=== PATIENT | male | born 1975 | race Caucasian/White ===

== ENCOUNTER 2017-10-15 12:58 | Emergency (ER) | payer OTHER ==
[2017-10-15 14:15] LABS: Appearance,Urine Clear (Clear); Bilirubin,Urine Negative (Negative); Blood,Urine Negative (Negative); Color,Urine Yellow; Glucose,Urine (UA) Negative (Negative); Ketones,Urine Negative (Negative); Leukocyte Esterase,Urine Trace (Negative); Mucus,Urine Rare /hpf; Nitrite,Urine Negative (Negative); PH, Urine 6.5 (5.0-8.0); Protein,Urine Negative (Negative); RBC,Urine 1 /hpf (0-5); Specific Gravity,Urine 1.014 (1.001-1.035); Urobilinogen,Urine <2.0 mg/dL (<2.0); WBC,Urine 4 /hpf (0-5)
[2017-10-15 14:26] LABS: ALT 35 U/L (21-72); AST 20 U/L (17-59); Albumin 4.3 g/dL (3.5-5.0); Alkaline Phosphatase 79 U/L (38-126); Amylase 50 U/L (30-110); Anion Gap 13 mmol/L; Blood Urea Nitrogen 12 mg/dL (9-20); Calcium 9.4 mg/dL (8.4-10.2); Carbon Dioxide 25 mmol/L (22-30); Chloride 103 mmol/L (98-107); Glucose 88 mg/dL (74-99); Lipase 45 U/L (23-300); Potassium 4.3 mmol/L (3.5-5.1); Sodium 141 mmol/L (137-145); Total Bilirubin 0.4 mg/dL (0.2-1.3); Total Protein 6.9 g/dL (6.3-8.2)
[2017-10-15 14:35] LABS: HCT 47.3 % (39.0-53.0); HGB 16.4 gm/dL (13.0-17.5); MCH 29.8 pg (25.0-35.0); MCHC 34.7 g/dL (31.0-37.0); MCV 85.9 fL (80.0-100.0); Mean Platelet Volume 6.5; Platelet Count 231 k/uL (150-450); RBC 5.51 m/uL (4.30-5.90); WBC 5.4 k/uL (3.8-10.6)
[2017-10-15] MEDS ORDERED: SODIUM CHLORIDE 0.9% 1,000 ML IV ONE (14:35)
[2017-10-15] MEDS ORDERED: KETOROLAC 30 MG/ML 1 ML VIAL IVP STA (14:35)
[2017-10-15] MEDS ORDERED: RX INFO: IV CONTRAST WAS GIVEN 1 EACH MISC MISCELLANE PRN (14:35)
--- NOTE | 2017-10-15 14:48 | ED ---
Nausea/Vomiting/Diarrhea HPI - General Chief complaint: Nausea/Vomiting/Diarrhea Stated complaint: nausea,vomiting Time Seen by Provider: 10/15/17 14:11 Source: patient Mode of arrival: ambulatory Limitations: no limitations - History of Present Illness Initial comments: 42-year-old male with past medical history as noted below presented for evaluation of abdominal pain with nausea and vomiting since Thursday. He states the pain initially started in the left lower quadrant and was followed 6 hours later by pain. His entire abdomen with associated nausea and vomiting and diarrhea. He states that his pain comes and goes, is mildly alleviated after vomiting, and worsened with palpation and walking. He states that this is never happened before. He has tried Imodium for the diarrhea which has improved somewhat and Tylenol for the pain which was not effective. He has not seen his primary care physician concerning this. Only past abdominal history is an appendectomy. Denies any upper abdominal pain or worsening with food. He denies significant alcohol consumption however he states he does take NSAIDs on a consistent basis. Denies chest pain, shortness of breath, fevers, chills. - Related Data Home Medications Medication Instructions Recorded Confirmed Acetaminophen Tab [Tylenol Tab] 1,000 mg PO Q6HR PRN 10/15/17 10/15/17 Ibuprofen [Motrin Ib] 400 mg PO Q6H PRN 10/15/17 10/15/17 Loperamide [Imodium] 2 - 4 mg PO QID PRN 10/15/17 10/15/17 Previous Rx's Medication Instructions Recorded Dicyclomine [Bentyl] 20 mg PO QID #30 tablet 10/15/17 Ondansetron Odt [Zofran Odt] 4 mg PO Q8HR PRN #7 tab 10/15/17 Allergies Allergy/AdvReac Type Severity Reaction Status Date / Time Penicillins Allergy Rash/Hives Verified 10/15/17 14:35 Review of Systems ROS Statement: Those systems with pertinent positive or pertinent negative responses have been documented in the HPI. ROS Other: All systems not noted in ROS Statement are negative. Constitutional: Denies: fever, chills, weakness Eyes: Denies: eye discharge, vision change ENT: Denies: ear pain, throat pain Respiratory: Denies: cough, dyspnea, wheezes Cardiovascular: Denies: chest pain, palpitations Endocrine: Reports: fatigue (Generalized). Denies: polydipsia, polyuria Gastrointestinal: Reports: abdominal pain, nausea, vomiting, diarrhea. Denies: hematemesis, melena, hematochezia Genitourinary: Denies: urgency, dysuria Musculoskeletal: Denies: back pain, arthralgia, myalgia Skin: Denies: rash, lesions Neurological: Denies: headache, weakness Psychiatric: Denies: anxiety, depression Hematological/Lymphatic: Denies: easy bleeding, easy bruising Past Medical History Past Medical History: Hyperlipidemia, Hypertension Additional Past Medical History / Comment(s): back pain, possible hypertension, anxiety disorder. History of Any Multi-Drug Resistant Organisms: None Reported Past Surgical History: Back Surgery Additional Past Surgical History / Comment(s): Pain back injections, back surgery in march 2014 Past Anesthesia/Blood Transfusion Reactions: No Reported Reaction Past Psychological History: Anxiety, Depression Smoking Status: Former smoker Past Alcohol Use History: Occasional Past Drug Use History: IV Drug Use, Opiates - Past Family History Father History Unknown: Yes Mother Family Medical History: Diabetes Mellitus General Exam Limitations: no limitations General appearance: alert, in distress ([id number]) Head exam: Present: atraumatic, normocephalic Eye exam: Present: normal appearance, PERRL, EOMI. Absent: scleral icterus, conjunctival injection ENT exam: Present: mucous membranes dry, normal external ear exam Neck exam: Present: normal inspection. Absent: tenderness Respiratory exam: Present: normal lung sounds bilaterally, respiratory distress Cardiovascular Exam: Present: regular rate, normal rhythm GI/Abdominal exam: Present: soft, tenderness (Left lower quadrant). Absent: distended, guarding, rebound, rigid, hernia Rectal exam: Present: deferred Extremities exam: Present: normal inspection, full ROM Back exam: Present: normal inspection, full ROM Neurological exam: Present: alert, oriented X3 Psychiatric exam: Present: normal affect, normal mood Skin exam: Present: warm, dry, intact Course Vital Signs 10/15/17 10/15/17 10/15/17 13:39 16:09 17:02 Temperature 99.5 F 99.8 F H 99.2 F Pulse Rate 79 75 76 Respiratory 18 20 18 Rate Blood Pressure 132/76 140/66 130/80 O2 Sat by Pulse 97 98 98 Oximetry Medical Decision Making - Medical Decision Making 42-year-old male presenting for evaluation of abdominal pain with associated nausea vomiting diarrhea since Thursday. On physical exam he appears to be in [id number] distress sitting at the edge of the bed stating he is feeling nauseated. Abdomen is soft and only tender to the left lower quadrant without peritoneal signs of guarding, rigidity, rebound. Pedis membranes are dry however pink without other abnormality. Remainder of his physical exam is benign. The patient starting the left lower quadrant concern for diverticulitis versus diverticulosis among other etiologies is concerning and will obtain CT abdomen and pelvis with IV contrast. We'll also obtain labs and provide IV fluids and Zofran. Labs revealed no significant abnormalities and CT abdomen and pelvis showed no acute process. The patient was reevaluated and had improvement in his symptoms. He is informed of all results and through shared decision making it was determined that he be discharged with instructions to follow-up with his primary care physician but to return to this facility if symptoms should worsen or persist. The patient acknowledged an understanding of all information provided and agreed with this plan of care. - Lab Data Result diagrams: 10/15/17 14:06 10/15/17 14:06 Lab Results 10/15/17 10/15/17 10/15/17 Range/Units 14:06 14:06 14:06 WBC 5.4 (3.8-10.6) k/uL RBC 5.51 (4.30-5.90) m/uL Hgb 16.4 (13.0-17.5) gm/dL Hct 47.3 (39.0-53.0) % MCV 85.9 (80.0-100.0) fL MCH 29.8 (25.0-35.0) pg MCHC 34.7 (31.0-37.0) g/dL RDW 13.0 (11.5-15.5) % Plt Count 231 (150-450) k/uL Neutrophils % (Manual) 60 % Lymphocytes % (Manual) 35 % Monocytes % (Manual) 5 % Neutrophils # (Manual) 3.24 (1.3-7.7) k/uL Lymphocytes # (Manual) 1.89 (1.0-4.8) k/uL Monocytes # (Manual) 0.27 (0-1.0) k/uL Nucleated RBCs 0 (0-0) /100 WBC RBC Morphology Normal Sodium 141 (137-145) mmol/L Potassium 4.3 (3.5-5.1) mmol/L Chloride 103 (98-107) mmol/L Carbon Dioxide 25 (22-30) mmol/L Anion Gap 13 mmol/L BUN 12 (9-20) mg/dL Creatinine 0.76 (0.66-1.25) mg/dL Est GFR (CKD-EPI)AfAm >90 (>60 ml/min/1.73 sqM) Est GFR (CKD-EPI)NonAf >90 (>60 ml/min/1.73 sqM) Glucose 88 (74-99) mg/dL Calcium 9.4 (8.4-10.2) mg/dL Total Bilirubin 0.4 (0.2-1.3) mg/dL AST 20 (17-59) U/L ALT 35 (21-72) U/L Alkaline Phosphatase 79 (38-126) U/L Total Protein 6.9 (6.3-8.2) g/dL Albumin 4.3 (3.5-5.0) g/dL Amylase 50 (30-110) U/L Lipase 45 (23-300) U/L Urine Color Yellow Urine Appearance Clear (Clear) Urine pH 6.5 (5.0-8.0) Ur Specific [place] 1.014 (1.001-1.035) Urine Protein Negative (Negative) Urine Glucose (UA) Negative (Negative) Urine Ketones Negative (Negative) Urine Blood Negative (Negative) Urine Nitrite Negative (Negative) Urine Bilirubin Negative (Negative) Urine Urobilinogen <2.0 (<2.0) mg/dL Ur Leukocyte Esterase Trace H (Negative) Urine RBC 1 (0-5) /hpf Urine WBC 4 (0-5) /hpf Urine Mucus Rare H (None) /hpf Disposition Clinical Impression: Abdominal pain, Nausea and vomiting Disposition: HOME SELF-CARE Condition: Stable Instructions: Acute Nausea and Vomiting (ED), Acute Diarrhea (ED), Abdominal Pain (ED) Additional Instructions: Please use medication as discussed. Please follow up with family doctor if symptoms have not improved over the next two days. Please return to the emergency room if your symptoms increase or worsen or for any other concerns. Prescriptions: Dicyclomine [Bentyl] 20 mg PO QID #30 tablet Ondansetron Odt [Zofran Odt] 4 mg PO Q8HR PRN #7 tab PRN Reason: Nausea Referrals: Christy Wynn MD [Primary Care Provider] - 1-2 days Time of Disposition: 16:35
[2017-10-15 14:58] LABS: Lymphocytes # (M) 1.89 k/uL (1.0-4.8); Monocytes # (M) 0.27 k/uL (0-1.0); Neutrophils # (M) 3.24 k/uL (1.3-7.7); Neutrophils % (M) 60 %; Nucleated Red Blood Cells 0 /100 WBC (0-0); Total Cells Counted 100
--- NOTE | 2017-10-15 15:36 | CT ---
EXAMINATION TYPE: CT abdomen pelvis w con DATE OF EXAM: 10/15/2017 COMPARISON: 03/24/2015 HISTORY: 42-year-old male with nausea and vomiting x 3 days with left lower quadrant pain. TECHNIQUE: Contiguous axial scanning of the abdomen and pelvis following administration of 100 ml Omn ipaque 300 IV contrast. Delayed images through the kidneys and coronal/sagittal reconstructions perf ormed. CT DLP: 1451 mGycm Automated exposure control for dose reduction was used. FINDINGS: Heart is normal size without pericardial effusion. Lung bases clear without pleural effusion. Tiny hiatal hernia. Small amount of focal fat along the anterior falciform ligament. Otherwise, no focal liver lesion. Po rtal venous system is patent. No biliary ductal dilatation. Gallbladder is mildly hydropic measuring 4.2 cm wide but without surrounding inflammatory change. Adrenal glands, kidneys, and pancreas appear within normal limits. Apparently 4 vague hyperdense foci are noted within the spleen. The spleen is also mildly enlarged me asuring 15.2 cm on coronal series. Previously measured 15.9 cm. Incidental retroaortic left renal vein. No dilated small bowel, free fluid, or free air. No mesenteric or retroperitoneal lymphadenopathy. Co uple scattered prominent mesenteric lymph nodes measuring up to 7 mm are noted in the mid abdomen. The appendix is not identified. No secondary findings of acute appendicitis in the right lower quadra nt. Mild stool burden. Bladder nondistended. Pelvic phleboliths are noted. No abnormal fluid collection in the pelvis or pel jason lymphadenopathy seen. Bones: Mild degenerative changes of the hips and within the lower lumbar spine. No osseous destructiv e process. IMPRESSION: 1. Mildly hydropic gallbladder probably relating to fasting state. If right upper quadrant pain or co ncern for early acute cholecystitis, recommend ultrasound or HIDA scan. 2. Mild splenomegaly (15.2 cm). There are 4 vague hypodense lesions within. The etiology is unclear. If immunocompromised state, fungal infection is a possibility. Metastatic disease is unlikely given l ack of other findings in the remainder of the abdomen/pelvis. Possibility of lymphoid neoplasm diffic ult to exclude at this time. Clinical correlation recommended. Three-month follow-up exam can be perf ormed. 3. Tiny hiatal hernia.
[2017-10-15 17:03] VITALS: BP 130/80; PULSE 76; RESP 18; TEMP 99.2
== END 2017-10-15 17:02 | disposition home or self-care (01) ==
LOC: EC 12:58
DX: R10.32 Left lower quadrant pain (principal); R11.2 Nausea with vomiting, unspecified; Z87.891 Personal history of nicotine dependence; Z88.0 Allergy status to penicillin; Z90.49 Acquired absence of other specified parts of digestive tract
CPT/HCPCS: 36415; 80053; 82150; 83690; 85025; 81001; 74177; 99284; 96374; 96361; J1885; Q9967

== ENCOUNTER → 2020-01-20 | Outpatient (CLI) | payer OTHER | END | disposition home or self-care (01) | LOC: LABWHC1 12:51 | PROVIDERS: ATTEND Family Medicine | DX: Z03.818 Encounter for observation for suspected exposure to other biological agents ruled out (principal); I25.10 Atherosclerotic heart disease of native coronary artery without angina pectoris; Z11.59 Encounter for screening for other viral diseases | CPT/HCPCS: U0003; C9803 ==

== ENCOUNTER 2022-10-30 16:09 | Observation (INO) | payer BC, OTHER ==
--- NOTE | 2022-10-30 16:23 | ED ---
Medical Clearance HPI - General Chief complaint: Drug Screen Stated complaint: poss overdose Time Seen by Provider: 10/30/22 16:19 Source: EMS, RN notes reviewed, old records reviewed Mode of arrival: EMS Limitations: language barrier, altered mental status, physical limitation - History of Present Illness Initial comments: This is a 47-year-old male to the emergency department for evaluation patient presents today for altered mental status found and not acting appropriately. Patient is known to be on Suboxone. Patient is unable to give history history obtained from EMS and prior charting. Concern for drug overdose or intoxication MD Complaint: other (Patient presents for altered mental status) -: unknown Reason for Medical Clearance: intoxication, medical condition, psychiatric condition Place: home Alleged Intoxication: Yes Compliant with Home Medications: No Associated Symptoms: confusion, nausea/vomiting, weakness Treatments Prior to Arrival: none Home medications: Home Medications Medication Instructions Recorded Confirmed ALPRAZolam [Xanax] 1 - 2 mg PO DAILY PRN 10/30/22 10/30/22 Buprenorphine HCl/Naloxone HCl 1 film SL TID 10/30/22 10/30/22 [Suboxone 8 mg-2 mg Sl Film] Escitalopram [Lexapro] 30 mg PO DAILY 10/30/22 10/30/22 hydrOXYzine HCL [Atarax] 50 mg PO BID PRN 10/30/22 10/30/22 traZODone HCL [Desyrel] 25 - 100 mg PO HS PRN 10/30/22 10/30/22 Allergies/Adverse reactions: Allergies Allergy/AdvReac Type Severity Reaction Status Date / Time Penicillins Allergy Rash/Hives Verified 10/30/22 17:50 Review of Systems ROS Statement: Those systems with pertinent positive or pertinent negative responses have been documented in the HPI. ROS Other: All systems not noted in ROS Statement are negative. Past Medical History Past Medical History: Hyperlipidemia, Hypertension Additional Past Medical History / Comment(s): back pain, possible hypertension, anxiety disorder. History of Any Multi-Drug Resistant Organisms: None Reported Past Surgical History: Back Surgery Additional Past Surgical History / Comment(s): Pain back injections, back surgery in march 2014 Past Anesthesia/Blood Transfusion Reactions: No Reported Reaction Past Psychological History: Anxiety, Depression Past Alcohol Use History: Occasional Past Drug Use History: IV Drug Use, Opiates - Past Family History Father History Unknown: Yes Mother Family Medical History: Diabetes Mellitus General Exam Limitations: altered mental status General appearance: alert, in no apparent distress Head exam: Present: atraumatic, normocephalic, normal inspection Eye exam: Present: normal appearance, PERRL, EOMI. Absent: scleral icterus, conjunctival injection, periorbital swelling ENT exam: Present: normal exam, mucous membranes moist Neck exam: Present: normal inspection. Absent: tenderness, meningismus, lymp hadenopathy Respiratory exam: Present: normal lung sounds bilaterally. Absent: respiratory distress, wheezes, rales, rhonchi, stridor Cardiovascular Exam: Present: regular rate, normal rhythm, normal heart sounds. Absent: systolic murmur, diastolic murmur, rubs, gallop, clicks GI/Abdominal exam: Present: soft, normal bowel sounds. Absent: distended, tenderness, guarding, rebound, rigid Extremities exam: Present: normal inspection, full ROM, normal capillary refill. Absent: tenderness, pedal edema, joint swelling, calf tenderness Back exam: Present: normal inspection Neurological exam: Present: alert, oriented X3, CN II-XII intact Psychiatric exam: Present: normal affect, normal mood Skin exam: Present: warm, dry, intact, normal color. Absent: rash Course Vital Signs 10/30/22 10/30/22 16:17 20:18 Temperature 98.6 F Pulse Rate 89 Respiratory 18 16 Rate O2 Sat by Pulse 98 Oximetry - Reevaluation(s) Reevaluation #1: 10/30/22 22:51 Medical record is reviewed Reevaluation #2: 10/30/22 22:51 Patient has no change in symptoms here in the ER Reevaluation #3: 10/30/22 22:52 Patient informed results and questions answered Reevaluation #4: 10/30/22 22:52 Was pt. sent in by a medical professional or institution? @ -no Did you speak to anyone other than the patient for history? @ -no Did you review nursing and triage notes? @ -agree Were old charts reviewed? @ -no Differential Diagnosis? @ -ams EKG interpreted by me (3pts min.)? @ -yes X-rays interpreted by me (1pt min.)? @ -no CT interpreted by me (1pt min.)? @ -no U/S interpreted by me (1pt. min.)? @ -no What testing was considered but not performed? (CT, X-rays, U/S, labs)? Why? @ -no What meds were considered but not given? Why? @ -narcan Did you discuss the management of the patient with other professionals? @ -no Did you reconcile home meds? @ -no Was smoking cessation discussed for >3mins.? @ -no Was critical care preformed (if so, how long)? @ -no Were there social determinants of health that impacted care today? How? (Homelessness, low income, unemployed, alcoholism, drug addiction, transportation, low edu. Level, literacy, decrease access to med. care, detention, rehab)? @ -no Was there de-escalation of care discussed even if they declined? (Discuss DNR or withdrawal of care, Hospice)? @ -no What co-morbidities impacted this encounter? (DM, HTN, Smoking, COPD, CAD, Cancer, CVA, Hep., AIDS, mental health diagnosis, sleep apnea, morbid obesity)? @ -no Was patient admitted / discharged? @ -admit Undiagnosed new problem with uncertain prognosis? @ -no Drug Therapy requiring intensive monitoring for toxicity (Heparin, Nitro, Insulin, Cardizem)? @ -no Were any procedures done? @ -no Diagnosis/symptom? @ -ams,overdose Acute, or Chronic, or Acute on Chronic? @ -acute Uncomplicated (without systemic symptoms) or Complicated (systemic symptoms)? @ -uncomplicated Side effects of treatment? @ -no Exacerbation, Progression, or Severe Exacerbation] @ -no Poses a threat to life or bodily function? @ -no Medical Decision Making - Medical Decision Making 47 male DF for evaluation patient Dese for altered mental status possible accidental drug overdose. Patient is on Suboxone could be overdose on his own Suboxone. Patient was petition for psychiatric evaluation - Lab Data Result diagrams: 10/30/22 18:07 10/30/22 18:07 Lab Results 10/30/22 10/30/22 10/30/22 Range/Units 18:07 18:07 18:07 WBC 7.0 (3.8-10.6) k/uL RBC 5.03 (4.30-5.90) m/uL Hgb 14.7 (13.0-17.5) gm/dL Hct 43.1 (39.0-53.0) % MCV 85.7 (80.0-100.0) fL MCH 29.2 (25.0-35.0) pg MCHC 34.1 (31.0-37.0) g/dL RDW 13.6 (11.5-15.5) % Plt Count 188 (150-450) k/uL MPV 7.6 Neutrophils % Not Reportable Neutrophils % (Manual) 68 % Lymphocytes % Not Reportable Lymphocytes % (Manual) 27 % Monocytes % Not Reportable Monocytes % (Manual) 5 % Eosinophils % Not Reportable Basophils % Not Reportable Neutrophils # Not Reportable Neutrophils # (Manual) 4.76 (1.3-7.7) k/uL Lymphocytes # Not Reportable Lymphocytes # (Manual) 1.89 (1.0-4.8) k/uL Monocytes # Not Reportable Monocytes # (Manual) 0.35 (0-1.0) k/uL Eosinophils # Not Reportable Basophils # Not Reportable Nucleated RBCs 0 (0-0) /100 WBC Manual Slide Review Performed RBC Morphology Normal PT 10.6 (9.0-12.0) sec INR 1.0 (<1.2) APTT 27.5 (22.0-30.0) sec Sodium 141 (137-145) mmol/L Potassium 4.3 (3.5-5.1) mmol/L Chloride 107 (98-107) mmol/L Carbon Dioxide 27 (22-30) mmol/L Anion Gap 7 mmol/L BUN 12 (9-20) mg/dL Creatinine 0.54 L (0.66-1.25) mg/dL Est GFR (CKD-EPI)AfAm >90 (>60 ml/min/1.73 sqM) Est GFR (CKD-EPI)NonAf >90 (>60 ml/min/1.73 sqM) Glucose 83 (74-99) mg/dL Plasma Lactic Acid Dwayne (0.7-2.0) mmol/L Calcium 9.0 (8.4-10.2) mg/dL Total Bilirubin 0.4 (0.2-1.3) mg/dL AST 39 (17-59) U/L ALT 40 (4-49) U/L Alkaline Phosphatase 80 (38-126) U/L Ammonia (<30) umol/L Troponin I (0.000-0.034) ng/mL Total Protein 6.5 (6.3-8.2) g/dL Albumin 3.9 (3.5-5.0) g/dL Urine Color Urine Appearance (Clear) Urine pH (5.0-8.0) Ur Specific [place] (1.001-1.035) Urine Protein (Negative) Urine Glucose (UA) (Negative) Urine Ketones (Negative) Urine Blood (Negative) Urine Nitrite (Negative) Urine Bilirubin (Negative) Urine Urobilinogen (<2.0) mg/dL Ur Leukocyte Esterase (Negative) Urine Opiates Screen (NotDetected) Ur Oxycodone Screen (NotDetected) Urine Methadone Screen (NotDetected) Ur Propoxyphene Screen (NotDetected) Ur Barbiturates Screen (NotDetected) U Tricyclic Antidepress (NotDetected) Ur Phencyclidine Scrn (NotDetected) Ur Amphetamines Screen (NotDetected) U Methamphetamines Scrn (NotDetected) U Benzodiazepines Scrn (NotDetected) Urine Cocaine Screen (NotDetected) U Marijuana (THC) Screen (NotDetected) Serum Alcohol <10 mg/dL 10/30/22 10/30/22 10/30/22 Range/Units 18:07 18:07 18:25 WBC (3.8-10.6) k/uL RBC (4.30-5.90) m/uL Hgb (13.0-17.5) gm/dL Hct (39.0-53.0) % MCV (80.0-100.0) fL MCH (25.0-35.0) pg MCHC (31.0-37.0) g/dL RDW (11.5-15.5) % Plt Count (150-450) k/uL MPV Neutrophils % Neutrophils % (Manual) % Lymphocytes % Lymphocytes % (Manual) % Monocytes % Monocytes % (Manual) % Eosinophils % Basophils % Neutrophils # Neutrophils # (Manual) (1.3-7.7) k/uL Lymphocytes # Lymphocytes # (Manual) (1.0-4.8) k/uL Monocytes # Monocytes # (Manual) (0-1.0) k/uL Eosinophils # Basophils # Nucleated RBCs (0-0) /100 WBC Manual Slide Review RBC Morphology PT (9.0-12.0) sec INR (<1.2) APTT (22.0-30.0) sec Sodium (137-145) mmol/L Potassium (3.5-5.1) mmol/L Chloride (98-107) mmol/L Carbon Dioxide (22-30) mmol/L Anion Gap mmol/L BUN (9-20) mg/dL Creatinine (0.66-1.25) mg/dL Est GFR (CKD-EPI)AfAm (>60 ml/min/1.73 sqM) Est GFR (CKD-EPI)NonAf (>60 ml/min/1.73 sqM) Glucose (74-99) mg/dL Plasma Lactic Acid Dwayne 1.1 (0.7-2.0) mmol/L Calcium (8.4-10.2) mg/dL Total Bilirubin (0.2-1.3) mg/dL AST (17-59) U/L ALT (4-49) U/L Alkaline Phosphatase (38-126) U/L Ammonia 9 (<30) umol/L Troponin I <0.012 (0.000-0.034) ng/mL Total Protein (6.3-8.2) g/dL Albumin (3.5-5.0) g/dL Urine Color Yellow Urine Appearance Clear (Clear) Urine pH 6.0 (5.0-8.0) Ur Specific [place] 1.024 (1.001-1.035) Urine Protein Trace H (Negative) Urine Glucose (UA) Negative (Negative) Urine Ketones 1+ H (Negative) Urine Blood Negative (Negative) Urine Nitrite Negative (Negative) Urine Bilirubin Negative (Negative) Urine Urobilinogen <2.0 (<2.0) mg/dL Ur Leukocyte Esterase Negative (Negative) Urine Opiates Screen Not Detected (NotDetected) Ur Oxycodone Screen Not Detected (NotDetected) Urine Methadone Screen Not Detected (NotDetected) Ur Propoxyphene Screen Not Detected (NotDetected) Ur Barbiturates Screen Not Detected (NotDetected) U Tricyclic Antidepress Not Detected (NotDetected) Ur Phencyclidine Scrn Not Detected (NotDetected) Ur Amphetamines Screen Not Detected (NotDetected) U Methamphetamines Scrn Not Detected (NotDetected) U Benzodiazepines Scrn Detected H (NotDetected) Urine Cocaine Screen Not Detected (NotDetected) U Marijuana (THC) Screen Not Detected (NotDetected) Serum Alcohol mg/dL Disposition Clinical Impression: Chronic prescription opiate use, Altered mental status, Weakness, Dehydration Disposition: ADMITTED IP TO THIS HOSP Condition: Good Is patient prescribed a controlled substance at d/c from ED?: No Time of Disposition: 21:10
[2022-10-30] MEDS ORDERED: SODIUM CHLORIDE 0.9% 1,000 ML IV ONE (17:42)
[2022-10-30] MEDS ORDERED: NALOXONE 0.4 MG/ML 1 ML VIAL IVP STA (17:42)
[2022-10-30] MEDS ORDERED: SODIUM CHLORIDE 0.9% 1,000 ML IV STA (17:43)
[2022-10-30 18:25] LABS: HCT 43.1 % (39.0-53.0); HGB 14.7 gm/dL (13.0-17.5); MCH 29.2 pg (25.0-35.0); MCHC 34.1 g/dL (31.0-37.0); MCV 85.7 fL (80.0-100.0); Mean Platelet Volume 7.6; Platelet Count 188 k/uL (150-450); RBC 5.03 m/uL (4.30-5.90); RDW 13.6 % (11.5-15.5)
[2022-10-30 18:27] LABS: Partial Thromboplastin Time 27.5 sec (22.0-30.0); Prothrombin Time 10.6 sec (9.0-12.0)
[2022-10-30 18:33] LABS: ALT 40 U/L (4-49); AST 39 U/L (17-59); African American GFR (CKD) >90 (>60 ml/min/1.73 sqM); Albumin 3.9 g/dL (3.5-5.0); Alcohol <10 mg/dL; Alkaline Phosphatase 80 U/L (38-126); Anion Gap 7 mmol/L; Blood Urea Nitrogen 12 mg/dL (9-20); Carbon Dioxide 27 mmol/L (22-30); Chloride 107 mmol/L (98-107); Glucose 83 mg/dL (74-99); Lactic Acid, Venous 1.1 mmol/L (0.7-2.0); Non-African American GFR(CKD) >90 (>60 ml/min/1.73 sqM); Potassium 4.3 mmol/L (3.5-5.1); Sodium 141 mmol/L (137-145); Total Bilirubin 0.4 mg/dL (0.2-1.3); Total Protein 6.5 g/dL (6.3-8.2)
[2022-10-30 18:52] LABS: Appearance,Urine Clear (Clear); Bilirubin,Urine Negative (Negative); Blood,Urine Negative (Negative); Color,Urine Yellow; Glucose,Urine (UA) Negative (Negative); Ketones,Urine 1+ (Negative); Leukocyte Esterase,Urine Negative (Negative); Nitrite,Urine Negative (Negative); Protein,Urine Trace (Negative); Specific Gravity,Urine 1.024 (1.001-1.035); Urobilinogen,Urine <2.0 mg/dL (<2.0)
[2022-10-30 19:03] LABS: Cocaine Screen,Urine Not Detected (NotDetected); Opiate Screen,Urine Not Detected (NotDetected); Phencyclidine Screen,Urine Not Detected (NotDetected); Urn Cannabinoid Scrn Not Detected (NotDetected)
[2022-10-30 19:04] LABS: Amphetamine Screen,Urine Not Detected (NotDetected); Barbiturate Screen,Urine Not Detected (NotDetected); Benzodiazepines Screen,Urine Detected (NotDetected); Methadone Screen, Urine Not Detected (NotDetected); Oxycodone Screen, Urine Not Detected (NotDetected); Tricyclic Antidepressant,Urine Not Detected (NotDetected)
[2022-10-30 19:09] LABS: Lymphocytes # (M) 1.89 k/uL (1.0-4.8); Monocytes # (M) 0.35 k/uL (0-1.0); Neutrophils # (M) 4.76 k/uL (1.3-7.7); Neutrophils % (M) 68 %; Nucleated Red Blood Cells 0 /100 WBC (0-0); Total Cells Counted 100
[2022-10-30 19:10] LABS: RBC Morphology Normal
[2022-10-30] MEDS ORDERED: NALOXONE 0.4 MG/ML 1 ML VIAL IV PRN (21:10)
[2022-10-30] MEDS ORDERED: ONDANSETRON 4 MG/2 ML VIAL IVP PRN (21:10)
[2022-10-31] MEDS: SODIUM CHLORIDE 0.9% 1,000 ML IV SCH ×4 (00:23→22:27)
[2022-10-31] MEDS ORDERED: traZODone HCL 50 MG TAB PO PRN (16:49)
[2022-10-31] MEDS ORDERED: hydrOXYzine pamoate 25 MG CAP PO PRN (16:52)
[2022-10-31] MEDS: ESCITALOPRAM 20 MG TAB PO SCH (17:29)
--- NOTE | 2022-10-31 20:09 | P.CN ---
Psychiatric Consult - . Consult date: 10/31/22 Consult:: 10/31/22 16:14 IDENTIFYING DATA: This patient is a 47 yo male, , lives with his parents, has 5 kids, unemployed currently. REASON FOR REFERRAL: Psychiatry was consulted for ["AMS"] HISTORY OF PRESENT ILLNESS: The patient presented to the hospital on 10/30 and was innappropriate and had AMS according to er notes. patient was on suboxone at home. he was a poor historian. he had BZD positive in his urine. he was admitr ed to medicine for weakness and dehydration. patient was seen in the room today and was agreeable to speak to singer songwriter. he did appear to ramble at times, confused at times. he was having a difficult time reaching for his cup to take a sip of coffee. he claims that he is starting to go through w/d from suboxone and was requesting it. sloe to respond at times. claims that one of his friends offered him "some type of street drug" while his kids were asleep and he states that he took it and has been feeling confused since. he is denying any depression or anxiety at this time. he is alert and oriented to name, place however [employer] it is an election coming up and thinks that its september 2022. claims his sleep is poor, about 5 hrs a night, fair appetite. At this time patient denies any suicidal or homical ideations, intent or plan. Patient denies any auditory, visual hallucinations and denies any paranoia or delusions. Patients admits to using cigarettes daily. claims hes been sober from etoh since jul 2022. PAST PSYCHIATRIC HISTORY: Patient has a a history of [polysubstance abuse and depression]. [he states that was previously on paxil, thorazine, vistaril inderal and klonopin.] [Patient claims his last psych hospitalizaiton was on the [facility] in 2014.] [Patient denies any psychiatric outpatient follow-up.] [Patient denies any history of suicide attempts in the past.] Past Medical History: Hyperlipidemia, Hypertension Additional Past Medical History / Comment(s): back pain, possible hypertension, anxiety disorder. History of Any Multi-Drug Resistant Organisms: None Reported Past Surgical History: Back Surgery Additional Past Surgical History / Comment(s): Pain back injections, back surgery in march 2014 Past Anesthesia/Blood Transfusion Reactions: No Reported Reaction Past Psychological History: Anxiety, Depression Past Alcohol Use History: Occasional Past Drug Use History: IV Drug Use, Opiates ALLERGIES: as per EMR. CHEMICAL DEPENDENCY HISTORY: as per HPI. FAMILY PSYCHIATRIC/SUBSTANCE USE HISTORY: [denies] SOCIAL HISTORY: Patient was born and raised in [facility] and then moved to [place]. he states that he completed high school and did 3yrs of college. 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 MENTAL STATUS EXAM: General Appearance: Patient appears to be overwieght, unshave, stated age is alert, pleasant, and cooperative. confused and mildly bizarre at times. Patient appears to have [fair] hygiene and grooming wearing hospital gown with [fair] eye contact. Behavior: [Patient is calmly lying in bed without any agitated behavior.] confused. Speech: Patient's speech is fluent and nonpressured. hesitant. delayed. Mood/Affect: Patient reports their mood is "ok", affect is congruent Suicidality/Homicidality: Patient denies having any suicidal or homicidal ideation intent or plan. Perceptions: Patient denies any visual hallucinations [and denies any auditory hallucinations] Though content/process: There is no evidence of any delusional thought content and thought process is linear and goal-directed. focused on medications. Memory and concentration: AOX3, grossly intact for the purposes of this session. Can spell "WORLD" backwards Judgment and insight: [poor] IMPRESSIONS: Delirium likely secondary to drug use? hx of depressive disorder alcohol use disorder in early remission nicotine dependence opioid dependence PLAN: -At this time patient DOES [NOT] meet criteria for inpatient psychiatric admission. [-Delirium precautions recommended with patient including - avoiding use of narcotics and DIALYSIS TECH sedatives, limit anticholinergic medications when possible, frequent re-orientation, minimize use of restraints, open window shades during the day and close them at night] -Would recommend the following medication changes/additions: restart patient on suboxone, lexapro, vistaril prn and trazodone prn. start risperdal 0.5 mg bid for psychosis/dleirium [-mission worker to provide patient with outpatient mental health/psychiatry resources for appropriate follow up upon discharge] [-Concrete Boom Operator spoke with patient about substance abuse and the harmful effects on medical and mental health, patient verbally understood and agreed.] [-mission worker to provide patient substance use treatment resources including AA/NA meetings in the community.] [-Communicated plan to patient's nurse] [-Will continue to follow along] tomorrow and likely sign off then if patient is improving. -Please contact with any questions. 10/31/22 19:58 10/31/22 20:08
[2022-10-31] MEDS ORDERED: CALCIUM CARBONATE 500 MG CHEWABLE PO PRN (21:16)
[2022-10-31] MEDS: risperiDONE 0.5 MG TAB PO SCH (21:23)
[2022-10-31] MEDS: BUPRENORPHINE-NALOX 8-2 MG TAB 1 EACH TAB.SUBL SL SCH (22:22)
[2022-11-01] MEDS: NON FORMULARY DRUG (Buprenorphine Hcl/Naloxone Hcl [Suboxone 8 Mg-2 Mg Sl Film] 1 EACH Fil SUBLINGUAL SCH ×2 (02:19→11:18)
[2022-11-01] MEDS: SODIUM CHLORIDE 0.9% 1,000 ML IV SCH (05:59)
--- NOTE | 2022-11-01 07:34 | HP ---
HISTORY AND PHYSICAL HISTORY OF PRESENT ILLNESS: This 47-year-old white male came to the hospital, inappropriate, EMS brought him here. He was benzo positive in his urine, dehydration. He takes Suboxone at home, some type of street drug. He is still confused. Denies any auditory or visual hallucinations. PAST MEDICAL HISTORY: Polysubstance abuse, depression, past psych admissions in 2014. Otherwise past medical history, hypertension, dyslipidemia, back pain, possible hypertension, anxiety, depression. SOCIAL HISTORY: Born and raised in [place], satisfactory sitting up in bed, giving appropriate answers. PHYSICAL EXAMINATION: CARDIOVASCULAR: S1, S2. LUNGS: Clear. GI: Soft. HEMATOLOGY: Negative for Homans. PSYCH: Fair mood and affect. NEUROLOGIC: Alert and oriented x3. He slurs words once in a while, giving appropriate answers. Has delirium secondary to drug use, depression, alcohol use in remission, nicotine addiction, opioid dependence. Psychiatry saw him, avoiding use of narcotics, , sedatives, minimize restraints. Restart patient on Suboxone, Lexapro. Prognosis guarded. Please see further orders. MMODL / IJN: [id number] /
[2022-11-01 07:36] VITALS: BP 104/66; PULSE 52; RESP 16; TEMP 98
[2022-11-01] MEDS ORDERED: FUROSEMIDE 10 MG/ML 2 ML VIAL IV STA (10:41)
[2022-11-01] MEDS: BUPRENORPHINE-NALOX 8-2 MG TAB 1 EACH TAB.SUBL SL SCH (11:15)
[2022-11-01] MEDS: ESCITALOPRAM 20 MG TAB PO SCH (11:16)
[2022-11-01] MEDS: risperiDONE 0.5 MG TAB PO SCH (11:16)
--- NOTE | 2022-11-01 12:28 | P.DS ---
Providers Date of admission: 10/30/22 21:11 Attending physician: Natalio Marroquin Consults: 10/30/22 21:10 Consult Physician Routine Consulting Provider: Amos Montero Reason/Comments: ams Do you want consulting provider notified?: Yes Primary care physician: Stated None Hospital Course: Patient is admitted for drug overdose urine drug screen is only for positive for benzodiazepines unknown which street drugs he took. Patient is medically stable at this time. Patient is awaiting well alert oriented 3 although slightly drowsy. Patient does take Suboxone at home which was resumed. Patient was evaluated by psychiatry they're negative not recommending any inpatient psychiatric hospitalization patient will be discharged today. Patient liver enzymes are essentially within normal limits although biochemical data is within normal limits at this time. Patient was found unresponsive before this has physician. Constitutional: Denied any fatigue denied any fever. Cardio vascular: denied any chest pain, palpitations Gastrointestinal denied any nausea vomiting Pulmonary: Denied any shortness of breath cough Neurologic denied any new focal deficits All inpatient medications were reviewed and appropriate changes in these medications as dictated in the interval history and assessment and plan. PHYSICAL EXAMINATION: GENERAL: The patient is alert and oriented x3, not in any acute distress. Well developed, well nourished. HEENT: Pupils are round and equally reacting to light. EOMI. No scleral icterus. No conjunctival pallor. Normocephalic, atraumatic. No pharyngeal erythema. No thyromegaly. CARDIOVASCULAR: S1 and S2 present. No murmurs, rubs, or gallops. PULMONARY: Chest is clear to auscultation, no wheezing or crackles. ABDOMEN: Soft, nontender, nondistended, normoactive bowel sounds. No palpable organomegaly. MUSCULOSKELETAL: No joint swelling or deformity. EXTREMITIES: No cyanosis, clubbing, or pedal edema. NEUROLOGICAL: Gross neurological examination did not reveal any focal deficits. SKIN: No rashes. Assessment and plan -Toxic encephalopathy: Secondary to drug overdose. Patient is medically stable patient will be discharged today. -Hyperlipidemia -Depression -History of opiate dependence, presently on Suboxone Patient Condition at Discharge: Good Plan - Discharge Summary New Discharge Prescriptions: Continue traZODone HCL [Desyrel] 25 - 100 mg PO HS PRN PRN Reason: Insomnia hydrOXYzine HCL [Atarax] 50 mg PO BID PRN PRN Reason: Anxiety Buprenorphine HCl/Naloxone HCl [Suboxone 8 mg-2 mg Sl Film] 1 film SL TID Escitalopram [Lexapro] 30 mg PO DAILY ALPRAZolam [Xanax] 1 - 2 mg PO DAILY PRN PRN Reason: Anxiety Discharge Medication List ALPRAZolam [Xanax] 1 - 2 mg PO DAILY PRN 10/30/22 [History] Buprenorphine HCl/Naloxone HCl [Suboxone 8 mg-2 mg Sl Film] 1 film SL TID 10/30/22 [History] Escitalopram [Lexapro] 30 mg PO DAILY 10/30/22 [History] hydrOXYzine HCL [Atarax] 50 mg PO BID PRN 10/30/22 [History] traZODone HCL [Desyrel] 25 - 100 mg PO HS PRN 10/30/22 [History] Follow up Appointment(s)/Referral(s): Natalio Marroquin MD [STAFF PHYSICIAN] - 1 Week None,Stated [Primary Care Provider] - 3 Days Patient Instructions/Handouts: Altered Mental Status (GEN) Discharge/Stand Alone Forms: AA Meetings [place], Community Resources, Outpatient Counseling, In Substance Abuse Facilities
--- NOTE | 2022-11-01 14:43 | P.PN ---
Progress Note - Text Progress Note Date: 11/01/22 Interval History: Patient was seen and evaluated bedside this afternoon. He is currently A&Ox4. He endorses having used "a pill like Xanax "along with the Suboxone prior to hospitalization. He says he cannot recall much of what happened after that. However, patient continues to be pre-contemplative despite significant length of time spent on education and motivational interviewing. He does not believe that there had been any negative consequences of his substance use. He says that he only sporadically takes Xanax but that he is compliant with Suboxone. When discussing elements of the petition completed by his Bettye, patient states that his tends to exaggerate things. He verbally consented to this provider speaking to his over the phone. He says that he has had a long history of depression for which he has been receiving treatment by a psychiatrist. He reports compliance with his medication. He is future orientated to spending time with his children and working at a new job in [place] where he says he will be setting [employer]. He expresses remorse for his a ctions leading to the hospitalization including mixing outside substances with Suboxone. Discussed that this might result in him no longer being prescribed this medication or other medications that are helpful for addiction. He expresses an understanding to these consequences and says that he will reach out to his remote ruby on rails developer and previous sponsor. Per [facility], patient is receiving Xanax 2 mg and Suboxone 8-2 from different providers (José Luis Ventura MD and Jyothi Macario, respectively). At this time patient denies any suicidal or homicidal ideations, intent or plan. Patient denies any auditory, visual hallucinations and denies any paranoia or delusions. Patient denies any side effects from the medications and has been compliant with meds. This provider spoke at length to his Bettye over the phone. She expresses concerns about patient's substance use including being sedated and drowsy to the point of not functioning in his role as a father. She states that there is currently a CPS case against him. She expressed concerns about his risky addiction behaviors. She says that he has been so altered due to his substance use that he has urinated on the floor thinking that it was the bathroom. This provider provided psychoeducation on the benefits and risks for Suboxone. She acknowledged that his use of alcohol has decreased use of other opiates has decreased since using Suboxone. She was encouraged to contact his outpatient provider and express her concerns. She stated that he should be asked to attend substance rehab and was informed that though this is recommended, it is vol untary. She also expressed understanding and agreed that patient cannot be psychiatrically hospitalized due to denying suicidal ideation, homicidal ideation, and AVH while sober. She hopes he will seek substance rehab. Mental Status Exam: General Appearance: Patient appears to be overwieght, stated age is alert, pleasant, and cooperative. Patient appears to have [fair] hygiene and grooming wearing hospital gown with [fair] eye contact. Behavior: Patient is calmly lying in bed without any agitated behavior. Speech: Patient's speech is fluent and nonpressured. Slightly delayed Mood/Affect: Patient reports their mood is "ok", affect is congruent Suicidality/Homicidality: Patient denies having any suicidal or homicidal ideation intent or plan. Perceptions: Patient denies any visual hallucinations and denies any auditory hallucinations Though content/process: There is no evidence of any delusional thought content and thought process is linear and goal-directed. focused on medications. Memory and concentration: AOX3, grossly intact for the purposes of this session. Can spell "WORLD" backwards Judgment and insight: poor Assessment Delirium resolved Alcohol use disorder, in remission Opioid use disorder, on maintenance treatment - while on suboxone during this hospitalization, patient was not lethargic or drowsy. Therefore, it is likely the concominant use of Suboxone with other street drugs and Xanax that is contributing to the symptoms that his described Benzodiazepine abuse Plan: -At this time patient DOES NOT meet criteria for inpatient psychiatric admission. -Would recommend the following medication changes/additions: Currently on home suboxone 8-2, lexapro 20 mg, vistaril prn and trazodone prn -Does not need to be sent home on risperdal 0.5 mg bid as he is no longer delirious -Would caution at the use of Suboxone if patient is continues to abuse other substances. Up to the discretion of Suboxone provider. Patient NOT to receive Suboxone scripts following discharge given he has script from outpatient provider -Do NOT recommend Xanax to be prescribed due to patient's abuse of this. -Coordination of care with José Luis Ventura MD - left VM (with patient's verbal consent) -new car make ready worker to provide patient with outpatient mental health/psychiatry resources for appropriate follow up upon discharge -Food Safety Scientist spoke with patient about substance abuse and the harmful effects on medical and mental health, patient verbally understood and agreed. -new car make ready worker to provide patient substance use treatment resources including AA/NA meetings in the community. -Communicated plan to patient's nurse [-Psychiatry signing off
== END 2022-11-01 15:30 | disposition home or self-care (01) ==
LOC: EC 16:09 → 4SSUR 21:11
PROVIDERS: ADMIT Family Medicine; ATTEND Family Medicine
DX: T50.901A Poisoning by unspecified drugs, medicaments and biological substances, accidental (unintentional), initial encounter (principal); G92.8 Other toxic encephalopathy; E86.0 Dehydration; F32.A Depression, unspecified; F11.20 Opioid dependence, uncomplicated; F17.210 Nicotine dependence, cigarettes, uncomplicated; F13.10 Sedative, hypnotic or anxiolytic abuse, uncomplicated; E78.5 Hyperlipidemia, unspecified; F10.11 Alcohol abuse, in remission; I10 Essential (primary) hypertension; F41.9 Anxiety disorder, unspecified; Z79.899 Other long term (current) drug therapy; Z88.0 Allergy status to penicillin; Z83.3 Family history of diabetes mellitus; Z56.0 Unemployment, unspecified; Y90.0 Blood alcohol level of less than 20 mg/100 ml
CPT/HCPCS: 99285; 36415; 80053; 82140; 83605; 84484; 85025; 85610; 85730; 81003; 80306; 80320; G0378 ×3

== ENCOUNTER 2024-07-22 17:57 | Emergency (ER) | payer OTHER ==
[2024-07-22 18:08] VITALS: TEMP 98.5
--- NOTE | 2024-07-22 18:41 | ED ---
Chest Pain HPI - General Chief Complaint: Chest Pain Stated Complaint: Chest pain Time Seen by Provider: 07/22/24 18:09 Source: patient Mode of arrival: ambulatory Limitations: no limitations - History of Present Illness Initial Comments: This patient is a 49-year-old man who presents to have evaluation for chest pain. The patient states he has been having intermittent symptoms going back a number of weeks. He had been seen at [facility]. The patient states that he was to have further follow-up but he had to fly to [place] where he was seeing family over the holidays. The patient states that he has been having intermittent symptoms and is not sure if it is related to anxiety or something worse. Patient denies developing leg pain or swelling. No cough or hemoptysis. No palpitations MD Complaint: chest pain -: week(s) Onset: during rest Pain Location: left chest, right chest Pain Radiation: none Severity: moderate Quality: tightness Consistency: intermittent Improves With: nothing Worsens With: nothing Other Symptoms: palpitations Treatments Prior to Arrival: none - Related Data Home Medications Medication Instructions Recorded Confirmed Buprenorphine HCl/Naloxone HCl 1 film SL TID 10/30/22 10/30/22 [Suboxone 8 mg-2 mg Sl Film] Escitalopram [Lexapro] 30 mg PO DAILY 10/30/22 10/30/22 hydrOXYzine HCL [Atarax] 50 mg PO BID PRN 10/30/22 10/30/22 traZODone HCL [Desyrel] 25 - 100 mg PO HS PRN 10/30/22 10/30/22 Allergies Allergy/AdvReac Type Severity Reaction Status Date / Time Penicillins Allergy Rash/Hives Verified 07/22/24 18:04 Review of Systems ROS Statement: Those systems with pertinent positive or pertinent negative responses have been documented in the HPI. ROS Other: All systems not noted in ROS Statement are negative. Constitutional: Denies: fever, chills, weakness Respiratory: Denies: cough, dyspnea, wheezes, hemoptysis Cardiovascular: Reports: chest pain, palpitations. Denies: orthopnea, edema, syncope Gastrointestinal: Denies: abdominal pain, nausea, vomiting Genitourinary: Denies: dysuria, hematuria Musculoskeletal: Denies: back pain Skin: Denies: rash Neurological: Denies: headache, weakness, numbness Psychiatric: Reports: anxiety EKG Findings - EKG Results: EKG: interpreted by ERMD, sinus rhythm (Rate 74 bpm), normal QRS, normal ST/T - Blocks, [place], Hypertrophy, ST Abn: QRS axis and voltage: right axis deviation (+90 to +180) (Borderline right axis) Past Medical History Past Medical History: Hyperlipidemia, Hypertension Additional Past Medical History / Comment(s): back pain, possible hypertension, anxiety disorder. History of Any Multi-Drug Resistant Organisms: None Reported Past Surgical History: Back Surgery Additional Past Surgical History / Comment(s): Pain back injections, back surgery in march 2014 Past Anesthesia/Blood Transfusion Reactions: No Reported Reaction Past Psychological History: Anxiety, Depression Smoking Status: Current every day smoker Past Alcohol Use History: Occasional Past Drug Use History: None Reported, IV Drug Use, Opiates - Past Family History Father History Unknown: Yes Mother Family Medical History: Diabetes Mellitus General Exam Limitations: no limitations General appearance: alert, in no apparent distress Head exam: Present: atraumatic, normocephalic Eye exam: Present: normal appearance. Absent: scleral icterus, conjunctival injection Neck exam: Present: normal inspection Respiratory exam: Present: normal lung sounds bilaterally. Absent: respiratory distress, wheezes, rales, rhonchi, stridor, accessory muscle use Cardiovascular Exam: Present: regular rate, normal rhythm, normal heart sounds. Absent: systolic murmur, diastolic murmur, rubs, gallop GI/Abdominal exam: Present: soft. Absent: distended, tenderness, guarding, rebound, rigid, mass Extremities exam: Present: normal inspection, normal capillary refill. Absent: pedal edema, calf tenderness Back exam: Present: normal inspection. Absent: CVA tenderness (R), CVA tenderness (L) Neurological exam: Present: alert Skin exam: Present: warm, dry, intact, normal color. Absent: rash Course Vital Signs 07/22/24 07/22/24 18:04 21:32 Temperature 98.5 F Pulse Rate 89 90 Respiratory 20 18 Rate Blood Pressure 152/92 150/77 O2 Sat by Pulse 98 98 Oximetry Chest Pain MDM - MDM The patient had chest x-ray that I interpreted as negative for acute infiltrate, pneumothorax, congestive heart failure Was pt. sent in by a medical professional or institution (, PA, TEMPORARY ADMINISTRATIVE ASSISTANT, urgent care, hospital, or senior living...) When possible be specific @ -[No] Did you speak to anyone other than the patient for history (EMS, parent, family, police, friend...)? What history was obtained from this source @ -[No] Did you review nursing and triage notes (agree or disagree)? Why? @ -[I reviewed and agree with nursing and triage notes] Were old charts reviewed (outside hosp., previous admission, EMS record, old EKG, old radiological studies, urgent care reports/EKG's, senior living records)? Report findings @ -[No old charts were reviewed] Differential Diagnosis (chest pain, altered mental status, abdominal pain women, abdominal pain men, vaginal bleeding, weakness, fever, dyspnea, syncope, head ache, dizziness, GI bleed, back pain, seizure, CVA, palpatations, mental health, musculoskeletal)? @ -[Differential Chest Pain: Stable Angina, Unstable Angina, STEMI, NSTEMI Aortic Dissection, Pneumothorax, Musculoskeletal, Esophageal Spasm GERD, Cholecystitis, Pancreatitis, Zoster, this is not meant to be an all-inclusive list. EKG interpreted by me (3pts min.). @ -[I interpreted as above] X-rays interpreted by me (1pt min.). @ -[I interpreted as above CT interpreted by me (1pt min.). @ -[None done] U/S interpreted by me (1pt. min.). @ -[None done] What testing was considered but not performed or refused? (CT, X-rays, U/S, labs)? Why? @ -[None] What meds were considered but not given or refused? Why? @ -[None] Did you discuss the management of the patient with other professionals (professionals i.e. , PA, TEMPORARY ADMINISTRATIVE ASSISTANT, lab, RT, psych nurse, social studies department chair, gse mechanic, teacher, customs and border protection officer, case finishing machine adjuster)? Give summary @ -[No] Was smoking cessation discussed for >3mins.? @ -[No] Was critical care preformed (if so, how long)? @ -[No] Were there social determinants of health that impacted care today? How? (Homelessness, low income, unemployed, alcoholism, drug addiction, transport ation, low edu. Level, literacy, decrease access to med. care, fpc, rehab)? @ -[No] Was there de-escalation of care discussed even if they declined (Discuss DNR or withdrawal of care, Hospice)? DNR status @ -[No] What co-morbidities impacted this encounter? (DM, HTN, Smoking, COPD, CAD, Cancer, CVA, ARF, Chemo, Hep., AIDS, mental health diagnosis, sleep apnea, morbid obesity)? @ -[None] Was patient admitted / discharged? Hospital course, mention meds given and route, prescriptions, significant lab abnormalities, going to OR and other pertinent info. @ -[Patient is 49-year-old man who is having intermittent chest pains and associated anxiety. His workup is unremarkable. His physical exam is also benign. Discussed with the patient having admission with cardiology evaluation but at this point the patient would like to follow-up as outpatient. He will return if symptoms recur or if any new symptoms develop Undiagnosed new problem with uncertain prognosis? @ -[No] Drug Therapy requiring intensive monitoring for toxicity (Heparin, Nitro, Insulin, Cardizem)? @ -[No] Were any procedures done? @ -[No] Diagnosis/symptom? @ -[Acute chest pain Acute, or Chronic, or Acute on Chronic? @ -[Acute Uncomplicated (without systemic symptoms) or Complicated (systemic symptoms)? @ -[default] Side effects of treatment? @ -[No] Exacerbation, Progression, or Severe Exacerbation? @ -[No] Poses a threat to life or bodily function? How? (Chest pain, [place], [place], pneumonia, PE, COPD, DKA, ARF, appy, cholecystitis, CVA, Diverticulitis, Homicidal, Suicidal, threat to staff... and all critical care pts) @ -[There is low risk but requires cardiology follow-up All treatments are based on ideal body weight as in ED triage Disposition Clinical Impression: Chest pain Disposition: HOME SELF-CARE Condition: Good Instructions (If sedation given, give patient instructions): Chest Pain (ED) Is patient prescribed a controlled substance at d/c from ED?: No Referrals: Keshav Agrawal MD [Primary Care Provider] - 1-2 days Jimbo Gramajo MD [STAFF PHYSICIAN] - 1-2 days
[2024-07-22 19:23] LABS: HGB 17.5 gm/dL (13.0-17.5); MCH 30.9 pg (25.0-35.0); MCHC 33.7 g/dL (31.0-37.0); MCV 91.8 fL (80.0-100.0); Mean Platelet Volume 6.6; Platelet Count 185 k/uL (150-450); RBC 5.66 m/uL (4.30-5.90); RDW 12.6 % (11.5-15.5); WBC 7.8 k/uL (3.8-10.6)
[2024-07-22] MEDS: ASPIRIN 81 MG PO STA (19:28)
[2024-07-22] MEDS: SODIUM CHLORIDE 0.9% 500 ML 500 ML IV STA (19:28)
--- NOTE | 2024-07-22 19:30 | XR ---
EXAMINATION TYPE: XR chest 2V DATE OF EXAM: 07/22/2024 7:12 PM COMPARISON: None. CLINICAL INDICATION: Male, 49 years old with history of Chest Pain,Pt to ED for CP described as tight ness and SOB. TECHNIQUE: XR chest 2V view(s) obtained. FINDINGS: The heart size is normal. The pulmonary vasculature is normal. The lungs are clear. IMPRESSION: 1. No acute pulmonary process. [facility], , 07/22/2024 7:28 PM
[2024-07-22 19:39] LABS: Partial Thromboplastin Time 24.3 sec (22.0-30.0); Prothrombin Time 11.1 sec (10.0-12.5)
[2024-07-22 19:50] LABS: ALT 25 U/L (4-49); AST 24 U/L (17-59); African American GFR (CKD) >90 (>60 ml/min/1.73 sqM); Albumin 4.7 g/dL (3.5-5.0); Alkaline Phosphatase 87 U/L (38-126); Amylase 66 U/L (30-110); Anion Gap 10 mmol/L; Blood Urea Nitrogen 14 mg/dL (9-20); Calcium 9.4 mg/dL (8.4-10.2); Carbon Dioxide 24 mmol/L (22-30); Chloride 102 mmol/L (98-107); Glucose 97 mg/dL (74-99); Lipase 42 U/L (23-300); Magnesium 2.1 mg/dL (1.6-2.3); Non-African American GFR(CKD) >90 (>60 ml/min/1.73 sqM); Potassium 4.5 mmol/L (3.5-5.1); Sodium 136 mmol/L (137-145); Total Bilirubin 0.7 mg/dL (0.2-1.3); Total Protein 7.1 g/dL (6.3-8.2)
[2024-07-22 20:38] LABS: Lymphocytes # (M) 1.87 k/uL (1.0-4.8); Monocytes # (M) 0.23 k/uL (0-1.0); Neutrophils # (M) 5.69 k/uL (1.3-7.7); Neutrophils % (M) 73 %; Nucleated Red Blood Cells 0 /100 WBC (0-0); Total Cells Counted 100
[2024-07-22 21:33] VITALS: BP 150/77; PULSE 90; RESP 18
== END 2024-07-22 21:44 | disposition home or self-care (01) ==
LOC: EC 17:57
DX: R07.89 Other chest pain (principal); F17.200 Nicotine dependence, unspecified, uncomplicated; Z88.0 Allergy status to penicillin
CPT/HCPCS: 36415; 71046; 80053; 82150; 83690; 83735; 84484; 85025; 85379; 85610; 85730; 93005; 96360; 99285